=== PATIENT | female | born 1960 ===

== ENCOUNTER 2016-11-05 10:09 | Inpatient (IN) ==
[2016-11-05] MEDS ORDERED: ONDANSETRON 4 MG/2 ML VIAL IV PRN (11:32)
[2016-11-05 13:19] LABS: Basophils # 0.1 10*3/uL (0.0-0.2); Eosinophils # 0.3 10*3/uL (0.0-0.87); Eosinophils % 3.8 % (0.00-10.9); Hematocrit 41.5 VOL% (35.7-47.0); Hemoglobin 13.9 GM/DL (12.0-16.0); Immature Granulocytes % 0.7 %; Immature Granulocytes Absolute 0.06 #; Lymphocytes # 2.4 10*3/uL (1.4-4.0); Lymphocytes % 27.5 % (21.3-54.2); Mean Corpuscular HGB Conc 33.5 GM/DL (32-36); Mean Corpuscular Hemoglobin 30 PG (27-34); Mean Corpuscular Volume 89.1 FL (87-102); Mean Platelet Volume 10.8 FL (9.6-12.0); Monocytes # 0.9 10*3/uL (0.11-0.8); Monocytes % 9.7 % (1.7-12.7); Neutrophils % 57.3 % (38.7-73.9); Platelet Count 299 T/CUMM (130-400); Red Blood Count 4.66 MC/CUMM (3.8-5.5); Red Cell Distribution Width 13.1 % (9.3-17.3); White Blood Count 8.7 T/CUMM (4-12)
--- NOTE | 2016-11-05 13:52 | XRay Report ---
Portable chest Date: 11/05/2016 Clinical history: Shortness of breath Comparison: None Technique: Portable AP sitting chest Findings: The heart is minimally enlarged of prior median sternotomy. Probable chronic scarring with atelectasis the left lung base. Unremarkable mediastinum with degenerative changes. Impression: Status post median sternotomy with chronic scarring. Subsegmental atelectasis at the left lung base. PROCEDURE INTERPRETED AT [facility] ([facility]) DEPARTMENT OF RADIOLOGY Final Report Signed by: Dr. Jenna Schmitt
[2016-11-05 14:08] LABS: Alanine Aminotransferase 35 U/L (13-56); Albumin 4.2 G/DL (3.4-5.0); Alkaline Phosphatase 113 U/L (45-117); Aspartate Amino Transferase 26 U/L (0-37); Bilirubin,Total < 0.39 MG/DL (0.2-1.0); Blood Urea Nitrogen 23 MG/DL (7-18); Calcium 9.8 MG/DL (8.5-10.1); Cholesterol 253 MG/DL (50-200); Free T4 (Free Thyroxine) 0.83 NG/DL (0.76-1.46); Glucose 143 MG/DL (74-106); HDL Cholesterol 64 MG/DL (40-60); Magnesium 2.5 MG/DL (1.8-2.4); Osmolality,Calculated 284.4 MOS/KG (273-304); Potassium 4.1 MMOL/L (3.5-5.1); Risk Ratio 3.95; Sodium 140 MMOL/L (136-145); Total Protein 7.8 G/DL (6.4-8.3); Triglycerides 542 MG/DL (2-150); VLDL CHOLESTEROL 108.4 MG/DL
--- NOTE | 2016-11-05 14:21 | EKG Report ---
Stationary ECG Study [facility] Test Date: 11/05/2016 2:20:45 PM Pat Name: JHONNY RICO Department: Room: 118 Gender: F Rn International: MALLORY : 1960 Requested by: Rodger Carey Order Number: [id number] Reading MD: CYNTHIA MENDEZ Intervals [place] Rate: 82 P: 51 UT: 143 QRS: -3 QRSD: 103 T: 43 QT: 415 QTc: 454 Interpretive Statements SINUS RHYTHM Electronically Signed On 11-09-16 11:58:26 CDT by CYNTHIA MENDEZ [email or web address]
[2016-11-05 14:29] LABS: Apearance,Urine CLEAR (Clear); Bilirubin,Urine Negative (Negative); Blood, Urine Negative (Negative); Glucose,Urine (UA) Negative (Negative); Ketones,Urine Negative (Negative); Mucus,Urine Occasional /LPF (Occasional); Nitrite,Urine Negative (Negative); Protein,Urine Negative; RBC,Urine 1 /HPF (0-4); Squamous Epithelial Cell,Urine Occasional /HPF (0-10); Urine Color Yellow (Yellow); Urine Specific Gravity 1.011 (1.001-1.035); Urine Urobilinogen < 2.0 EU/DL (0.2-1.0); WBC,Urine 2 /HPF (0-6)
--- NOTE | 2016-11-05 14:36 | Cardiology Consult Note ---
History of Present Illness - Data of Consult Patient: new to practice Consult date: 11/05/16 Requesting Physician: Isela Swan - Consult Narrative Reason for consult: chest pain History of present illness: Ms. Edwards is a 56 year old female who has known corneal disease and bypass surgery previously. She is referred for the [facility] i.e. Dr. Sebastian for evaluation of chest pain. The patient arrived on IV heparin and nitroglycerin. This patient states this past Wednesday that she began having periods of lightheadedness and dizziness but no syncope or near syncope. This was not limiting. Wednesday she had a single episode of a fleeting left-sided chest pain that was sharp in nature lasting less than a minute. This was not accompanied by shortness of breath nausea diaphoresis or other symptomatology. It was nonradiating. After this she noted 3 or 4 times a day that she would have fleeting pressure pains lasting just seconds. In fact during our interview and exam she had one or 2 of these episodes especially when I place my stethoscope over the left anterior chest. She was referred here to [facility] in transfer to the hospitalist service for chest pain. She was started on IV nitroglycerin and heparin prior to transfer. The patient was not having any chest pain at this time. Review of her outside records from [facility] I see no cardiac enzymes. Her proBNP is unremarkable. Her to restrict her CBC is unremarkable. Her ECG is unremarkable from there and probably normal. Some records that are available from a [facility] reveals that she had had a renal cell carcinoma grade 1 that was treated surgically and did well. Also dated December 2013 is a cardiac perfusion study that revealed ejection fraction 47% in some areas that appeared ashen B scar but was felt to possibly be secondary to ischemia. A cardiac catheterization carried out. After this cardiac perfusion study she had cardiac catheterization without LV gram. Based on this the left main coronary artery gave rise to the LAD and circumflex arteries with the left requiring being patent without stenosis or disease. The LAD was patent with moderate diffuse disease proximally. Circumflex artery gave rise to small obtuse marginal branches. The RCA was totally occluded in its midportion. Grafts included a SANABRIA to LAD that was widely patent supplying the apical LAD. The vein graft to the circumflex marginal branch appeared to be patent and had disease beyond that. There is a small vessel to which he was attached. The vein graft to the distal RCA was patent with distal same percent stenosis. The vein graft to the distal RCA as well as to another marginal branch or diagonal branch was occluded. An echocardiogram carried out December 2013 with ejection fraction 50% without definitive valvular abnormality. Other cardiac chambers were Normal size. At this time the patient generally stable without specific issues or problems. [facility] Medications and Allergies Allergies/Adverse Reactions: Allergies Allergy/AdvReac Type Severity Reaction Status Date / Time sitagliptin [From Januvia] Allergy Intermediate RASH Verified 11/05/16 13:38 acetaminophen [From Vicodin] AdvReac Mild ITCHING Verified 11/05/16 13:38 codeine AdvReac Mild ITCHING Verified 11/05/16 13:38 hydrocodone [From Vicodin] AdvReac Mild ITCHING Verified 11/05/16 13:38 Review of systems: Constitutional: Denies anorexia, chills, fatigue, fever, frequent falls, night sweats, weight gain, weight loss Eyes: Denies visual changes or loss of vision Ears: Denies decreased hearing, vertigo Nose, mouth and throat: Denies dysphagia, epistaxis, headaches, neck pain, tongue swelling, Neck: Denies thyromegaly or masses. No stiffness. Cardiovascular: as per HPI Respiratory: Denies cough, dyspnea, hemoptysis, wheezing, snoring. She does have a history of some distant exertion for the last several months. Gastrointestinal: Denies abdominal pain, constipation, dyspepsia, dysphagia, hematemesis, hematochezia, melena, nausea, vomiting Genitourinary: Denies dysuria, hematuria, nocturia Musculoskeletal: Denies arthralgias, joint swelling, muscle weakness, myalgias Neurological: denies abnormal gait, abnormal speech, confusion, convulsions, frequent falls, headaches, memory loss, syncope Psychiatric: Denies anxiety, confusion, depression Endocrine: Denies cold intolerance, fatigue, heat intolerance Hematologic/Lymphatic: Denies easy bleeding, easy bruising Dermatologic: Denies Rash, itching, shingles Medical,Surgical,& Family Hx - Medical History Cardio: History of: CHF (2013), CAD (CABG in 2007), Hypertension, [place] (CABG in 2007), PVD (2012) Endocrine: History of: Diabetes Mellitus (NIDDM) (on metformin and levimer), Dyslipidemia Respiratory: History of: Asthma Renal: History of: Renal (Kidney) Cancer (tumor resection left kidney 2013) Gastrointestinal: History of: GERD Other: History of: Cancer (stage I tumor left kidnes) - Surgical History Cardiac Surgeries: Sugical HX of: Cardiac Catheterization, Cardiac Surgery ( CABG in 2007) Patient Denies: Carotid Endarterectomy (diagnosed with carotid artery 2012) Thoracic Surgeries: Patient denies;: Organ Transplant Neurologic Surgeries: Patient denies: Neurologic Surgery HEENT Surgeries: Patient denies: Carotid Endarterectomy (diagnosed with carotid artery 2012) Reproductive Surgeries: Surgical HX of;: Section (x3), Gynecologic Surgery, Hysterectomy Patient denies;: Genitourinary Surgery Orthopedic Surgeries: Surgical HX of;: Orthopedic Surgery (ACL surgery left knee ) - Family History Family History: Reports;: Family Cancer (both parents (kind unknown)), Family Diabetes (Aunts on both sides), Family Heart Disease (both parents with stents) , Family Hypertension Denies;: Family Anesthesia Reaction, Family Hematology - Social History Smoking Status: Former smoker Frequency of Alcohol Use: None Type of Drug Use: None Physical Examination Other: General appearance: Overweight/obese, no acute distress Head exam: normal inspection, atraumatic Eye exam: Pupils are equal and reactive. EOMI. There is no trauma. Ear exam: Anatomically normal. Normal auditory acuity to conversation. Oral exam: No significant oral lesions. Neck exam: normal inspection no JVD. No carotid bruit. Trachea is in midline. Respiratory exam: clear to auscultation bilaterally posteriorly and anteriorly with good air movement. No rales, rhonchi or wheezes. Cardiovascular exam: regular rate and rhythm, no murmur or gallop or rub. No precordial lift. No bruits over the major arteries. Chest wall/torso: Anatomically normal. No tenderness, deformity. It should be noted on 2 incidences in which my stethoscope touched her left anterior chest she had reproduction of her her fleeting pain. He was not grossly tender though. Peripheral Pulses: 2+ throughout. No gross bruits over any of the major arteries. GI/Abdominal exam: normal bowel sounds, soft and nontender, no abdominal bruits or pulsatile masses. Musculoskeletal/Extremities exam: normal inspection without edema or cyanosis. No deformities or trauma. Neurological exam: alert, oriented X3. There is no gross neurologic deficits. Psychiatric exam: normal affect, normal mood. Cognitive function is grossly intact. Skin exam: normal color, warm. No rashes or other skin lesions. Result/EKG - Labs CBC & BMP: 11/05/16 13:14 11/05/16 13:14 Lab Results: I have reviewed the past 24 hour labs Labs: Laboratory Results - last 24 hr 11/05/16 11/05/16 11/05/16 13:14 13:14 13:14 WBC 8.7 RBC 4.66 Hgb 13.9 Hct 41.5 MCV 89.1 MCH 30 MCHC 33.5 RDW 13.1 Plt Count 299 MPV 10.8 Neut % (Auto) 57.3 Lymph % (Auto) 27.5 [place] % (Auto) 9.7 Eos % (Auto) 3.8 Baso % (Auto) 1.0 H Neut # (Auto) 5.0 Lymph # (Auto) 2.4 [place] # (Auto) 0.9 H Eos # (Auto) 0.3 Baso # (Auto) 0.1 Immature Gran % 0.7 Nucleated RBC % 0.0 Immature Gran # 0.06 Nucleated RBCs # 0.00 Sodium 140 Potassium 4.1 Chloride 101 Carbon Dioxide 27 Anion Gap 16.1 H BUN 23 H Creatinine 1.20 H GFR Calculation 55 BUN/Creatinine Ratio 19.00 Glucose 143 H POC Glucose Calculated Osmolality 284.4 Calcium 9.8 Magnesium 2.5 H Total Bilirubin < 0.39 AST 26 ALT 35 Alkaline Phosphatase 113 B-Natriuretic Peptide 120 H Total Protein 7.8 Albumin 4.2 Globulin 3.6 H Albumin/Globulin Ratio 1.1 Triglycerides 542 H Cholesterol 253 H LDL Cholesterol 126.0 VLDL Cholesterol 108.4 HDL Cholesterol 64 H Heart Disease Risk Ratio 3.95 Free T4 0.83 TSH 3rd Generation 1.850 11/05/16 14:17 WBC RBC Hgb Hct MCV MCH MCHC RDW Plt Count MPV Neut % (Auto) Lymph % (Auto) [place] % (Auto) Eos % (Auto) Baso % (Auto) Neut # (Auto) Lymph # (Auto) [place] # (Auto) Eos # (Auto) Baso # (Auto) Immature Gran % Nucleated RBC % Immature Gran # Nucleated RBCs # Sodium Potassium Chloride Carbon Dioxide Anion Gap BUN Creatinine GFR Calculation BUN/Creatinine Ratio Glucose POC Glucose 144 H Calculated Osmolality Calcium Magnesium Total Bilirubin AST ALT Alkaline Phosphatase B-Natriuretic Peptide Total Protein Albumin Globulin Albumin/Globulin Ratio Triglycerides Cholesterol LDL Cholesterol VLDL Cholesterol HDL Cholesterol Heart Disease Risk Ratio Free T4 TSH 3rd Generation - Impressions Impressions: ECG here is normal sinus rhythm and within normal limits without ischemic changes.
--- NOTE | 2016-11-05 14:45 | Cardiology Consult Note ---
Assessment and Plan (1) Chest pain Status: Acute Assessment and plan: This is atypical for cardiac and his diet that is cardiac. No further evaluation unless his other enzymes are elevated or other issues are found. Current Visit: Yes (2) CAD (coronary artery disease), [place] coronary artery Status: Chronic Assessment and plan: Past surgical bypass surgery with 2 vein grafts) patent 2 vein grafts and SANABRIA graft. Current Visit: Yes (3) CAD (coronary artery disease) of bypass graft Status: Chronic Assessment and plan: 2 vein grafts in 2013 were close. Current Visit: Yes (4) History of coronary artery bypass graft Status: Acute Assessment and plan: This apparently carried out 2007. Had SANABRIA to LAD, SVG to OM, SVG to RCA which were noted to be patent in 2014 catheterization. At that same time SVG to distal RCA and SVG to what may be a diagonal branch were occluded. Current Visit: Yes (5) Dyslipidemia Status: Chronic Assessment and plan: Chronic treatment for this. We will check lipids Current Visit: Yes (6) Diabetes mellitus Status: Chronic Assessment and plan: We will leave this to the primary service. Current Visit: Yes (7) Hypertension Status: Chronic Assessment and plan: This appears to be poorly controlled and we will manage this accordingly with the primary service as well. Current Visit: Yes (8) Obesity Status: Chronic Assessment and plan: Weight loss to be beneficial to the patient. Current Visit: Yes History of Present Illness - Consult Narrative History of present illness: Ms. Edwards is a 56 year old female [facility] Medications and Allergies Home Medications: Home Medications Medication Instructions Recorded Confirmed Type Albuterol Inhaler [Proventil 2 puff INH Q4H PRN 11/05/16 11/05/16 History Inhaler] Aspirin [Aspirin EC] 81 mg PO DAILY 11/05/16 11/05/16 History Atorvastatin [Lipitor] 40 mg PO BEDTIME 11/05/16 11/05/16 History Carvedilol [Coreg] 3.125 mg PO BID 11/05/16 11/05/16 History Cholecalciferol (Vitamin D3) 1,000 unit PO DAILY 11/05/16 11/05/16 History [Vitamin D3] Cilostazol [Pletal] 50 mg PO BID 11/05/16 11/05/16 History Furosemide [Lasix] 40 mg PO DAILY 11/05/16 11/05/16 History Gabapentin 600 mg PO TID 11/05/16 11/05/16 History Insulin Detemir [Levemir FlexPen] 35 unit SUBCUT DAILY 11/05/16 11/05/16 History Losartan Potassium [Cozaar] 100 mg PO DAILY 11/05/16 11/05/16 History Pantoprazole Tab [Protonix Tab] 40 mg PO BID 11/05/16 11/05/16 History Potassium Chloride [Klor-Con] 20 meq PO DAILY 11/05/16 11/05/16 History Propylene Glycol [Systane Balance] 1 drop BOTH EYES Q4-6H PRN 11/05/16 11/05/16 History metFORMIN [Glucophage] 500 mg PO BID W/MEALS 11/05/16 11/05/16 History Allergies/Adverse Reactions: Allergies Allergy/AdvReac Type Severity Reaction Status Date / Time sitagliptin [From Januvia] Allergy Intermediate RASH Verified 11/05/16 13:38 acetaminophen [From Vicodin] AdvReac Mild ITCHING Verified 11/05/16 13:38 codeine AdvReac Mild ITCHING Verified 11/05/16 13:38 hydrocodone [From Vicodin] AdvReac Mild ITCHING Verified 11/05/16 13:38 Medical,Surgical,& Family Hx - Medical History Cardio: History of: CHF (2013), CAD (CABG in 2007), Hypertension, [place] (CABG in 2007), PVD (2012) Endocrine: History of: Diabetes Mellitus (NIDDM) (on metformin and levimer), Dyslipidemia Respiratory: History of: Asthma Renal: History of: Renal (Kidney) Cancer (tumor resection left kidney 2013) Gastrointestinal: History of: GERD Other: History of: Cancer (stage I tumor left ) - Surgical History Cardiac Surgeries: Sugical HX of: Cardiac Catheterization, Cardiac Surgery ( CABG in 2007) Patient Denies: Carotid Endarterectomy (diagnosed with carotid artery 2012) Thoracic Surgeries: Patient denies;: Organ Transplant Neurologic Surgeries: Patient denies: Neurologic Surgery HEENT Surgeries: Patient denies: Carotid Endarterectomy (diagnosed with carotid artery 2012) Reproductive Surgeries: Surgical HX of;: Section (x3), Gynecologic Surgery, Hysterectomy Patient denies;: Genitourinary Surgery Orthopedic Surgeries: Surgical HX of;: Orthopedic Surgery (ACL surgery left knee ) - Family History Family History: Reports;: Family Cancer (both parents (kind unknown)), Family Diabetes (Aunts on both sides), Family Heart Disease (both parents with stents) , Family Hypertension Denies;: Family Anesthesia Reaction, Family Hematology - Social History Smoking Status: Former smoker Frequency of Alcohol Use: None Type of Drug Use: None Result/EKG - Labs CBC & BMP: 11/05/16 13:14 11/05/16 13:14 Labs: Laboratory Results - last 24 hr 11/05/16 11/05/16 11/05/16 13:14 13:14 13:14 WBC 8.7 RBC 4.66 Hgb 13.9 Hct 41.5 MCV 89.1 MCH 30 MCHC 33.5 RDW 13.1 Plt Count 299 MPV 10.8 Neut % (Auto) 57.3 Lymph % (Auto) 27.5 [place] % (Auto) 9.7 Eos % (Auto) 3.8 Baso % (Auto) 1.0 H Neut # (Auto) 5.0 Lymph # (Auto) 2.4 [place] # (Auto) 0.9 H Eos # (Auto) 0.3 Baso # (Auto) 0.1 Immature Gran % 0.7 Nucleated RBC % 0.0 Immature Gran # 0.06 Nucleated RBCs # 0.00 Sodium 140 Potassium 4.1 Chloride 101 Carbon Dioxide 27 Anion Gap 16.1 H BUN 23 H Creatinine 1.20 H GFR Calculation 55 BUN/Creatinine Ratio 19.00 Glucose 143 H POC Glucose Calculated Osmolality 284.4 Calcium 9.8 Magnesium 2.5 H Total Bilirubin < 0.39 AST 26 ALT 35 Alkaline Phosphatase 113 B-Natriuretic Peptide 120 H Total Protein 7.8 Albumin 4.2 Globulin 3.6 H Albumin/Globulin Ratio 1.1 Triglycerides 542 H Cholesterol 253 H LDL Cholesterol 126.0 VLDL Cholesterol 108.4 HDL Cholesterol 64 H Heart Disease Risk Ratio 3.95 Free T4 0.83 TSH 3rd Generation 1.850 Urine Color Urine Appearance Urine pH Ur Specific [place] Urine Protein Urine Glucose (UA) Urine Ketones Urine Blood Urine Nitrate Urine Bilirubin Urine Urobilinogen Urine Leukocytes Urine RBC Urine WBC Ur Squamous Epith Cells Urine Mucus Ur Culture Indicated? 11/05/16 11/05/16 13:40 14:17 WBC RBC Hgb Hct MCV MCH MCHC RDW Plt Count MPV Neut % (Auto) Lymph % (Auto) [place] % (Auto) Eos % (Auto) Baso % (Auto) Neut # (Auto) Lymph # (Auto) [place] # (Auto) Eos # (Auto) Baso # (Auto) Immature Gran % Nucleated RBC % Immature Gran # Nucleated RBCs # Sodium Potassium Chloride Carbon Dioxide Anion Gap BUN Creatinine GFR Calculation BUN/Creatinine Ratio Glucose POC Glucose 144 H Calculated Osmolality Calcium Magnesium Total Bilirubin AST ALT Alkaline Phosphatase B-Natriuretic Peptide Total Protein Albumin Globulin Albumin/Globulin Ratio Triglycerides Cholesterol LDL Cholesterol VLDL Cholesterol HDL Cholesterol Heart Disease Risk Ratio Free T4 TSH 3rd Generation Urine Color Yellow Urine Appearance Clear Urine pH 6.0 Ur Specific [place] 1.011 Urine Protein Negative Urine Glucose (UA) Negative Urine Ketones Negative Urine Blood Negative Urine Nitrate Negative Urine Bilirubin Negative Urine Urobilinogen < 2.0 H Urine Leukocytes Negative Urine RBC 1 Urine WBC 2 Ur Squamous Epith Cells Occasional Urine Mucus Occasional Ur Culture Indicated? Not indicated
[2016-11-05] MEDS ORDERED: POLYVINYL ALCOHOL 1.4% OPH SOLN 15 ML BOTTLE BOTH EYES PRN (14:47)
[2016-11-05] MEDS ORDERED: cloNIDine 0.1 MG TABLET PO PRN (14:49)
[2016-11-05 14:57] LABS: Troponin I Only < 0.015 NG/ML (0.00-0.045)
[2016-11-05] MEDS ORDERED: ALBUTEROL 2.5 MG/3 ML NEB RESP TX PRN (15:00)
--- NOTE | 2016-11-05 15:57 | Hospitalist History & Physical ---
Assessment and Plan (1) Chest pain Status: Acute Assessment and plan: We will admit. Obtain echo, lipid panel, HGA1C, thyroid panel, and serial cardiac enzymes. Will consult Cardiology to assist. Heparin and Nitro discontinued per Cardiology. We will resume her home medications. Current Visit: Yes (2) Diabetes mellitus Status: Chronic Assessment and plan: Obtain HGA1C now. We will manage and adjust accordingly. Current Visit: Yes (3) Dyslipidemia Status: Chronic Assessment and plan: Will manage and treat as indicated; obtain lipid panel now. Current Visit: Yes (4) Hypertension Status: Chronic Assessment and plan: Will will treat and adjust as indicated. She is hypertensive now; her SBP is above 170 and diastolic is above 110. Will start Hydralazine PRN. Current Visit: Yes History of Present Illness Chief complaint: Unstable angina History of present illness: This is a 56 year old female that presented to [facility] as a lateral transfer from the [facility] for evaluation of unstable angina. She has a rather complex medical history of hypertension, coronary artery disease, renal cell carcinoma, congestive heart failure, peripheral vascular disease, myocardial infarction, asthma, diabetes mellitus, and GERD. She has a surgical history of left knee ACL surgery, coronary artery bypass graft in 2007, and left kidney tumor resection. She reported an onset of symptoms on Wednesday of last week. She described them as "lightheadedness"; however she denies syncope. The patient reports these symptoms as intermittent. On yesterday,she started experiencing left sided chest pain. She denies nausea, diaphoresis, syncope, or jaw pain during these episodes. She became alarmed and she went to the [facility] for evaluation. She was evaluated there by Dr. Sebastian. She was placed on a heparin and nitroglycerin infusion. We were contacted by Dr. Sebastian for assistance in the management of this patient. She was then transferred to [facility] for continuation of care. She will be admitted under the hospitalist services for continuation of care. We will consult Cardiology to assist in her management during the clinical encounter. She has been seen by Dr. Lane and her infusions have been discontinued. Home Medications Medication Instructions Recorded Confirmed Type Albuterol Inhaler [Proventil 2 puff INH Q4H PRN 11/05/16 11/05/16 History Inhaler] Aspirin [Aspirin EC] 81 mg PO DAILY 11/05/16 11/05/16 History Atorvastatin [Lipitor] 40 mg PO BEDTIME 11/05/16 11/05/16 History Carvedilol [Coreg] 3.125 mg PO BID 11/05/16 11/05/16 History Cholecalciferol (Vitamin D3) 1,000 unit PO DAILY 11/05/16 11/05/16 History [Vitamin D3] Cilostazol [Pletal] 50 mg PO BID 11/05/16 11/05/16 History Furosemide [Lasix] 40 mg PO DAILY 11/05/16 11/05/16 History Gabapentin 600 mg PO TID 11/05/16 11/05/16 History Insulin Detemir [Levemir FlexPen] 35 unit SUBCUT DAILY 11/05/16 11/05/16 History Losartan Potassium [Cozaar] 100 mg PO DAILY 11/05/16 11/05/16 History Pantoprazole Tab [Protonix Tab] 40 mg PO BID 11/05/16 11/05/16 History Potassium Chloride [Klor-Con] 20 meq PO DAILY 11/05/16 11/05/16 History Propylene Glycol [Systane Balance] 1 drop BOTH EYES Q4-6H PRN 11/05/16 11/05/16 History metFORMIN [Glucophage] 500 mg PO BID W/MEALS 11/05/16 11/05/16 History Allergies Allergy/AdvReac Type Severity Reaction Status Date / Time sitagliptin [From Januvia] Allergy Intermediate RASH Verified 11/05/16 13:38 acetaminophen [From Vicodin] AdvReac Mild ITCHING Verified 11/05/16 13:38 codeine AdvReac Mild ITCHING Verified 11/05/16 13:38 hydrocodone [From Vicodin] AdvReac Mild ITCHING Verified 11/05/16 13:38 Medical,Surgical,& Family Hx - Medical History Cardio: History of: CHF (2013), CAD (CABG in 2007), Hypertension, [place] (CABG in 2007), PVD (2012) Endocrine: History of: Diabetes Mellitus (NIDDM) (on metformin and levimer), Dyslipidemia Respiratory: History of: Asthma Renal: History of: Renal (Kidney) Cancer (tumor resection left kidney 2013) Gastrointestinal: History of: GERD Other: History of: Cancer (stage I tumor left kid) - Surgical History Cardiac Surgeries: Sugical HX of: Cardiac Catheterization, Cardiac Surgery ( CABG in 2007) Patient Denies: Carotid Endarterectomy (diagnosed with carotid artery 2012) Thoracic Surgeries: Patient denies;: Organ Transplant Neurologic Surgeries: Patient denies: Neurologic Surgery HEENT Surgeries: Patient denies: Carotid Endarterectomy (diagnosed with carotid artery 2012) Reproductive Surgeries: Surgical HX of;: Section (x3), Gynecologic Surgery, Hysterectomy Patient denies;: Genitourinary Surgery Orthopedic Surgeries: Surgical HX of;: Orthopedic Surgery (ACL surgery left knee ) - Family History Family History: Reports;: Family Cancer (both parents (kind unknown)), Family Diabetes (Aunts on both sides), Family Heart Disease (both parents with stents) , Family Hypertension Denies;: Family Anesthesia Reaction, Family Hematology - Social History Smoking Status: Former smoker Have you smoked in the last 12 months: No Frequency of Alcohol Use: None Type of Drug Use: None Marital Status: Single Lives With:: Alone Functional capacity: independent ambulation 12 point system: reviewed and no additional remarkable complaints except as stated Results - Labs CBC & BMP: 11/05/16 13:14 11/05/16 13:14
[2016-11-05] MEDS: GABAPENTIN 600 MG TABLET PO SCH ×2 (16:02→22:15)
[2016-11-05] MEDS ORDERED: LOSARTAN 50 MG TABLET PO ONE (16:14)
[2016-11-05] MEDS ORDERED: metFORMIN 500 MG TABLET PO SCH (17:00)
[2016-11-05] MEDS: metFORMIN 500 MG TABLET PO SCH (18:46)
[2016-11-05] MEDS ORDERED: ATORVASTATIN 40 MG TABLET PO SCH (21:00)
[2016-11-05] MEDS ORDERED: CARVEDILOL 3.125 MG TABLET PO SCH (21:00)
[2016-11-05] MEDS: CILOSTAZOL 50 MG TABLET PO SCH (22:15)
[2016-11-05] MEDS: PANTOPRAZOLE 40 MG TABLET PO SCH (22:16)
[2016-11-05] MEDS: CARVEDILOL 6.25 MG TABLET PO SCH (22:16)
[2016-11-06 05:04] LABS: Basophils # 0.1 10*3/uL (0.0-0.2); Basophils % 0.8 % (0.0-0.8); Eosinophils # 0.3 10*3/uL (0.0-0.87); Eosinophils % 3.4 % (0.00-10.9); Hematocrit 39.3 VOL% (35.7-47.0); Hemoglobin 12.8 GM/DL (12.0-16.0); Immature Granulocytes % 0.4 %; Immature Granulocytes Absolute 0.03 #; Lymphocytes # 2.2 10*3/uL (1.4-4.0); Lymphocytes % 30.9 % (21.3-54.2); Mean Corpuscular HGB Conc 32.6 GM/DL (32-36); Mean Corpuscular Hemoglobin 29 PG (27-34); Mean Corpuscular Volume 89.9 FL (87-102); Mean Platelet Volume 10.9 FL (9.6-12.0); Monocytes # 0.7 10*3/uL (0.11-0.8); Monocytes % 9.6 % (1.7-12.7); Neutrophils % 54.9 % (38.7-73.9); Platelet Count 271 T/CUMM (130-400); Red Blood Count 4.37 MC/CUMM (3.8-5.5); White Blood Count 7.3 T/CUMM (4-12)
[2016-11-06 05:38] LABS: Calcium 9.6 MG/DL (8.5-10.1); Magnesium 2.5 MG/DL (1.8-2.4); Osmolality,Calculated 285.7 MOS/KG (273-304); Potassium 4.9 MMOL/L (3.5-5.1)
[2016-11-06 05:45] LABS: Alanine Aminotransferase 34 U/L (13-56); Albumin 3.9 G/DL (3.4-5.0); Alkaline Phosphatase 99 U/L (45-117); Aspartate Amino Transferase 21 U/L (0-37); Blood Urea Nitrogen 29 MG/DL (7-18); Calcium 9.6 MG/DL (8.5-10.1); Glucose 178 MG/DL (74-106); Osmolality,Calculated 286.5 MOS/KG (273-304); Sodium 139 MMOL/L (136-145); Total Protein 6.9 G/DL (6.4-8.3); Troponin I Only < 0.015 NG/ML (0.00-0.045)
[2016-11-06 06:01] LABS: Risk Ratio 3.85
--- NOTE | 2016-11-06 07:50 | XRay Report ---
XR chest 1V portable Indication: Shortness of breath Comparison: 05 November 2016 Findings: The heart and mediastinum are stable in size and configuration with cardiac surgery changes. The pulmonary vascularity is normal in caliber. Lung volumes are increased with prominent bronchial markings. No lung infiltrates, effusions, pneumothorax or other abnormality is demonstrated. Impression: Chronic lung and cardiac surgery changes. No acute process or significant change. PROCEDURE INTERPRETED AT [facility] DEPARTMENT OF RADIOLOGY Final Report Signed by: Dr. Fidel Miller
[2016-11-06] MEDS: CILOSTAZOL 50 MG TABLET PO SCH (08:36)
[2016-11-06] MEDS: CARVEDILOL 6.25 MG TABLET PO SCH (08:36)
[2016-11-06] MEDS: metFORMIN 500 MG TABLET PO SCH (08:38)
[2016-11-06] MEDS: GABAPENTIN 600 MG TABLET PO SCH (08:38)
[2016-11-06] MEDS: PANTOPRAZOLE 40 MG TABLET PO SCH (08:40)
[2016-11-06] MEDS ORDERED: POTASSIUM CHLORIDE 20 MEQ PACK PO SCH (09:00)
[2016-11-06] MEDS ORDERED: INSULIN GLARGINE 100 UNIT/ML SUBCUT SCH (09:00)
[2016-11-06] MEDS ORDERED: ASPIRIN EC 81 MG TABLET PO SCH (09:00)
[2016-11-06] MEDS ORDERED: LOSARTAN 50 MG TABLET PO SCH ×2 (09:00→21:00)
[2016-11-06] MEDS ORDERED: PANTOPRAZOLE 40 MG TABLET PO SCH (09:00)
[2016-11-06] MEDS ORDERED: FUROSEMIDE 40 MG TABLET PO SCH (09:00)
[2016-11-06] MEDS ORDERED: CHOLECALCIFEROL 1,000 UNIT TABLET PO SCH (09:00)
--- NOTE | 2016-11-06 09:51 | Cardiology Progress Note ---
Assessment and Plan (1) Chest pain Status: Acute Assessment and plan: This is noncardiac pain he needs no further evaluation this time. She can follow-up with Dr. Ocampo at the [facility] for her continued follow-up that she has been doing. Current Visit: Yes (2) CAD (coronary artery disease), [place] coronary artery Status: Chronic Assessment and plan: This can be followed up with Dr. Ocampo is been following her at the [facility]. This is clinically stable. Current Visit: Yes (3) CAD (coronary artery disease) of bypass graft Status: Chronic Assessment and plan: 2 vein grafts in 2014 were close. Other grafts were open. This was clinically stable. Current Visit: Yes (4) History of coronary artery bypass graft Status: Acute Assessment and plan: This apparently carried out 2007. Had [place] to LAD, SVG to OM, SVG to RCA which were noted to be patent in 2014 catheterization. At that same time SVG to distal RCA and SVG to what may be a diagonal branch were occluded. Current Visit: Yes (5) Dyslipidemia Status: Chronic Assessment and plan: Chronic treatment for this. Lipids are elevated is a question that she has been compliant with her treatment. She needs to follow this up as an outpatient and stay compliant with her treatment. Current Visit: Yes (6) Diabetes mellitus Status: Chronic Assessment and plan: We will leave this to the primary service. Current Visit: Yes (7) Hypertension Status: Chronic Assessment and plan: This is much better controlled at this time present medical regimen. She's had some dizziness but don't think is her blood pressure. Her blood pressure went high and she had dizziness and during the night with a low still had some dizziness and this morning she has episodes of with her pressures normal. I would continue present medical regimen. She has a blood pressure cuff at home but needs batteries Reji to do a blood pressure general at home and follow- up with her PCP. Current Visit: Yes (8) Obesity Status: Chronic Assessment and plan: Weight loss to be beneficial to the patient. Current Visit: Yes Cardiology - PN: Subj Interval history: Patient from a cardiac standpoint remained stable. She has occasional fleeting type chest pain lasting a second or less. Certainly is not anginal in quality. She had any shortness of breath. She's continued had his feeling of dizziness. She's not having any heart symptomatology. Denies shortness of breath. Her rhythm is remained stable. Her troponins are nondetectable. ECG is normal. The patient had carotid Dopplers carried out 11/05/2016 as per the report she greater than 50% stenosis in the right side but based on velocities is unlikely that this is hemodynamically significant causing her symptoms. Left side with no significant stenosis. Vertebral arteries had antegrade flow. The patient is followed by Dr. Ocampo at the [facility]. I think this patient could be discharged when primary service is ready. At this time she needs no further cardiac evaluation. We will sign off the patient but please let us know if she has any issues that we can assist you with. Exam (Progress Note) - Constitutional Vitals: Period Temp Pulse Resp BP Sys/Newsome Pulse Ox Last 24 Hr 97.6 F-97.8 F 75-115 12-22 83-155/43-125 91-98 Exam: General appearance: Overweight/obese, no acute distress Head exam: normal inspection, atraumatic Eye exam: Pupils are equal and reactive. EOMI. There is no trauma. Ear exam: Anatomically normal. Normal auditory acuity to conversation. Oral exam: No significant oral lesions. Neck exam: normal inspection no JVD. No carotid bruit. Trachea is in midline. Respiratory exam: clear to auscultation bilaterally posteriorly and anteriorly with good air movement. No rales, rhonchi or wheezes. Cardiovascular exam: regular rate and rhythm, no murmur or gallop or rub. No precordial lift. No bruits over the major arteries. Chest wall/torso: Anatomically normal. No tenderness, deformity. It should be noted on 2 incidences in which my stethoscope touched her left anterior chest she had reproduction of her her fleeting pain. He was not grossly tender though. Peripheral Pulses: 2+ throughout. No gross bruits over any of the major arteries. GI/Abdominal exam: normal bowel sounds, soft and nontender, no abdominal bruits or pulsatile masses. Musculoskeletal/Extremities exam: normal inspection without edema or cyanosis. No deformities or trauma. Neurological exam: alert, oriented X3. There is no gross neurologic deficits. Psychiatric exam: normal affect, normal mood. Cognitive function is grossly intact. Skin exam: normal color, warm. No rashes or other skin lesions. Result/EKG - Labs CBC & BMP: 11/06/16 04:38 04/21/17 04:38 Lab Results: I have reviewed the past 24 hour labs Labs: Laboratory Results - last 24 hr 11/05/16 11/05/16 11/05/16 13:14 13:14 13:14 WBC 8.7 RBC 4.66 Hgb 13.9 Hct 41.5 MCV 89.1 MCH 30 MCHC 33.5 RDW 13.1 Plt Count 299 MPV 10.8 Neut % (Auto) 57.3 Lymph % (Auto) 27.5 [place] % (Auto) 9.7 Eos % (Auto) 3.8 Baso % (Auto) 1.0 H Neut # (Auto) 5.0 Lymph # (Auto) 2.4 [place] # (Auto) 0.9 H Eos # (Auto) 0.3 Baso # (Auto) 0.1 Immature Gran % 0.7 Nucleated RBC % 0.0 Immature Gran # 0.06 Nucleated RBCs # 0.00 Sodium 140 Potassium 4.1 Chloride 101 Carbon Dioxide 27 Anion Gap 16.1 H BUN 23 H Creatinine 1.20 H GFR Calculation 55 BUN/Creatinine Ratio 19.00 Glucose 143 H POC Glucose Calculated Osmolality 284.4 Calcium 9.8 Magnesium 2.5 H Total Bilirubin < 0.39 AST 26 ALT 35 Alkaline Phosphatase 113 Total Creatine Kinase CK-MB (CK-2) Troponin I B-Natriuretic Peptide 120 H Total Protein 7.8 Albumin 4.2 Globulin 3.6 H Albumin/Globulin Ratio 1.1 Triglycerides 542 H Cholesterol 253 H LDL Cholesterol 126.0 VLDL Cholesterol 108.4 HDL Cholesterol 64 H Heart Disease Risk Ratio 3.95 Free T4 0.83 TSH 3rd Generation 1.850 Urine Color Urine Appearance Urine pH Ur Specific [place] Urine Protein Urine Glucose (UA) Urine Ketones Urine Blood Urine Nitrate Urine Bilirubin Urine Urobilinogen Urine Leukocytes Urine RBC Urine WBC Ur Squamous Epith Cells Urine Mucus Ur Culture Indicated? 11/05/16 11/05/16 11/05/16 13:14 13:40 14:17 WBC RBC Hgb Hct MCV MCH MCHC RDW Plt Count MPV Neut % (Auto) Lymph % (Auto) [place] % (Auto) Eos % (Auto) Baso % (Auto) Neut # (Auto) Lymph # (Auto) [place] # (Auto) Eos # (Auto) Baso # (Auto) Immature Gran % Nucleated RBC % Immature Gran # Nucleated RBCs # Sodium Potassium Chloride Carbon Dioxide Anion Gap BUN Creatinine GFR Calculation BUN/Creatinine Ratio Glucose POC Glucose 144 H Calculated Osmolality Calcium Magnesium Total Bilirubin AST ALT Alkaline Phosphatase Total Creatine Kinase 107 CK-MB (CK-2) < 1.0 Troponin I < 0.015 B-Natriuretic Peptide Total Protein Albumin Globulin Albumin/Globulin Ratio Triglycerides Cholesterol LDL Cholesterol VLDL Cholesterol HDL Cholesterol Heart Disease Risk Ratio Free T4 TSH 3rd Generation Urine Color Yellow Urine Appearance Clear Urine pH 6.0 Ur Specific [place] 1.011 Urine Protein Negative Urine Glucose (UA) Negative Urine Ketones Negative Urine Blood Negative Urine Nitrate Negative Urine Bilirubin Negative Urine Urobilinogen < 2.0 H Urine Leukocytes Negative Urine RBC 1 Urine WBC 2 Ur Squamous Epith Cells Occasional Urine Mucus Occasional Ur Culture Indicated? Not indicated 11/06/16 11/06/16 11/06/16 04:38 04:38 04:38 WBC 7.3 RBC 4.37 Hgb 12.8 Hct 39.3 MCV 89.9 MCH 29 MCHC 32.6 RDW 13.0 Plt Count 271 MPV 10.9 Neut % (Auto) 54.9 Lymph % (Auto) 30.9 [place] % (Auto) 9.6 Eos % (Auto) 3.4 Baso % (Auto) 0.8 Neut # (Auto) 4.0 Lymph # (Auto) 2.2 [place] # (Auto) 0.7 Eos # (Auto) 0.3 Baso # (Auto) 0.1 Immature Gran % 0.4 Nucleated RBC % 0.0 Immature Gran # 0.03 Nucleated RBCs # 0.00 Sodium 138 Potassium 4.9 Chloride 102 Carbon Dioxide 28 Anion Gap 12.9 BUN 29 H Creatinine 1.60 H GFR Calculation 39 BUN/Creatinine Ratio 18.00 Glucose 183 H POC Glucose Calculated Osmolality 285.7 Calcium 9.6 Magnesium 2.5 H Total Bilirubin AST ALT Alkaline Phosphatase Total Creatine Kinase CK-MB (CK-2) Troponin I B-Natriuretic Peptide Total Protein Albumin Globulin Albumin/Globulin Ratio Triglycerides 435 H Cholesterol 235 H LDL Cholesterol 123.0 VLDL Cholesterol 87.0 HDL Cholesterol 61 H Heart Disease Risk Ratio 3.85 Free T4 TSH 3rd Generation Urine Color Urine Appearance Urine pH Ur Specific [place] Urine Protein Urine Glucose (UA) Urine Ketones Urine Blood Urine Nitrate Urine Bilirubin Urine Urobilinogen Urine Leukocytes Urine RBC Urine WBC Ur Squamous Epith Cells Urine Mucus Ur Culture Indicated? 11/06/16 04:38 WBC RBC Hgb Hct MCV MCH MCHC RDW Plt Count MPV Neut % (Auto) Lymph % (Auto) [place] % (Auto) Eos % (Auto) Baso % (Auto) Neut # (Auto) Lymph # (Auto) [place] # (Auto) Eos # (Auto) Baso # (Auto) Immature Gran % Nucleated RBC % Immature Gran # Nucleated RBCs # Sodium 139 Potassium 5.0 Chloride 101 Carbon Dioxide 28 Anion Gap 15.0 BUN 29 H Creatinine 1.60 H GFR Calculation 39 BUN/Creatinine Ratio 18.00 Glucose 178 H POC Glucose Calculated Osmolality 286.5 Calcium 9.6 Magnesium Total Bilirubin 1.10 H AST 21 ALT 34 Alkaline Phosphatase 99 Total Creatine Kinase 94 CK-MB (CK-2) < 1.0 Troponin I < 0.015 B-Natriuretic Peptide Total Protein 6.9 Albumin 3.9 Globulin 3.0 Albumin/Globulin Ratio 1.3 Triglycerides Cholesterol LDL Cholesterol VLDL Cholesterol HDL Cholesterol Heart Disease Risk Ratio Free T4 TSH 3rd Generation Urine Color Urine Appearance Urine pH Ur Specific [place] Urine Protein Urine Glucose (UA) Urine Ketones Urine Blood Urine Nitrate Urine Bilirubin Urine Urobilinogen Urine Leukocytes Urine RBC Urine WBC Ur Squamous Epith Cells Urine Mucus Ur Culture Indicated? - Impressions Impressions: Telemetry with normal sinus rhythm.
[2016-11-06] MEDS ORDERED: POTASSIUM CHLORIDE 20 MEQ TABLET PO SCH (10:00)
--- NOTE | 2016-11-06 11:16 | Ultrasound Report ---
Exam: Carotid ultrasound Date: 11/06/2016 Comparison: None Technique: Duplex scans of the carotid and vertebral arteries using B-mode/Schwartz scale imaging and Doppler spectral analysis and color flow. Reason: Dizziness Findings: The right ICA measures 4.8 mm in diameter and the left ICA measures 4.2 mm in diameter. Color-flow documented in the visualized arteries. The peak systolic velocities are as follows: Right CCA: 67.7 cm/s Right ICA: 164.2 cm/s Right ECA: 114.3 cm/s Left CCA: 68.8 cm/s Left ICA: 105.7 cm/s Left ECA: 151.1 cm/s The peak systolic ICA/CCA velocity ratios are as follows: 2.4 on the right and 1.5 on the left. Antegrade flow is present in both vertebral arteries. Impression:[50-69% stenosis in right ICA with heterogeneous plaque formation. Less than 50% stenosis in left ICA. Antegrade flow both vertebral arteries.] The Society of Radiologists in Ultrasound consensus conference criteria was used. The Ultrasound images were captured and stored. PROCEDURE INTERPRETED AT [facility] DEPARTMENT OF RADIOLOGY Final Report Signed by: Dr. Jenna Schmitt
--- NOTE | 2016-11-06 12:21 | Discharge Summary ---
Hospital Course - Hospital Course Hospital Course: Mrs. Edwards was transferred from [facility] to [facility] for evaluation of chest pain. EKG and troponins are serially negative. Patient was evaluated by cardiology and cleared for discharge. Chest pain was felt to be noncardiac. Patient had complaints of postural lightheadedness however carotid ultrasound revealed no evidence of significant hemodynamic stenosis and orthostatic vitals were normal. By discharge patient had met maximum benefit of hospitalization. I spent 38 minutes coordinating this discharge. - Time spent with patient Time with patient DS: Greater than 30 minutes Discharge Plan - Discharge Data Disposition: Disch To Home/Self Care Condition at Discharge: Stable Discharge Diet: advance to your usual diet Activity: resume usual activities as tolerated Hygiene: no restrictions - Discharge Medications Continue metFORMIN [Glucophage] 1,000 mg PO BID W/MEALS Carvedilol [Coreg] 3.125 mg PO BID Gabapentin 600 mg PO TID Pantoprazole Tab [Protonix Tab] 40 mg PO BID Cilostazol [Pletal] 50 mg PO BID Atorvastatin [Lipitor] 40 mg PO BEDTIME Albuterol Inhaler [Proventil Inhaler] 2 puff INH Q4H PRN PRN Reason: Shortness Of Breath/Wheezing Propylene Glycol [Systane Balance] 1 drop BOTH EYES Q4-6H PRN PRN Reason: Dry Eyes Potassium Chloride [Klor-Con] 20 meq PO DAILY Losartan Potassium [Cozaar] 100 mg PO DAILY Insulin Detemir [Levemir FlexPen] 35 unit SUBCUT DAILY Furosemide [Lasix] 40 mg PO DAILY Cholecalciferol (Vitamin D3) [Vitamin D3] 1,000 unit PO DAILY Aspirin [Aspirin EC] 81 mg PO DAILY - Follow Up or Referral - Forms/Instructions Exam - Constitutional Vitals: Period Temp Pulse Resp BP Sys/Newsome Pulse Ox Last 24 Hr 96.8 F-97.8 F 75-115 12-22 83-155/43-125 91-98 General appearance: normal weight, no acute distress - Head Head exam: Present: normal inspection, normocephalic - Eye Eye exam: Present: EOMI Pupils: Present: [place] - ENT ENT exam: Present: normal exam - Neck Neck exam: Present: normal inspection - Respiratory Respiratory exam: Present: clear to auscultation bilaterally. Absent: accessory muscle use, prolonged expiratory phase, wheezes - Cardiovascular Cardiovascular exam: Present: regular rate and rhythm. Absent: bradycardia, irregular rhythm, systolic murmur - GI/Abdominal GI/Abdominal exam: Present: normal bowel sounds. Absent: ascites, hypoactive bowel sounds, tenderness - Extremities Exam Extremities exam: Present: normal inspection Discharge Results Procedures and tests throughout hospitalization: Pending Orders 11/05/16 13:40 Urine Culture Stat Labs on day of discharge: Labs from last 24 hours 11/06/16 11/06/16 11/06/16 04:38 04:38 04:38 WBC 7.3 RBC 4.37 Hgb 12.8 Hct 39.3 MCV 89.9 MCH 29 MCHC 32.6 RDW 13.0 Plt Count 271 MPV 10.9 Neut % (Auto) 54.9 Lymph % (Auto) 30.9 [place] % (Auto) 9.6 Eos % (Auto) 3.4 Baso % (Auto) 0.8 Neut # (Auto) 4.0 Lymph # (Auto) 2.2 [place] # (Auto) 0.7 Eos # (Auto) 0.3 Baso # (Auto) 0.1 Immature Gran % 0.4 Nucleated RBC % 0.0 Immature Gran # 0.03 Nucleated RBCs # 0.00 Sodium 139 138 Potassium 5.0 4.9 Chloride 101 102 Carbon Dioxide 28 28 Anion Gap 15.0 12.9 BUN 29 H 29 H Creatinine 1.60 H 1.60 H GFR Calculation 39 39 BUN/Creatinine Ratio 18.00 18.00 Glucose 178 H 183 H POC Glucose Calculated Osmolality 286.5 285.7 Calcium 9.6 9.6 Magnesium 2.5 H Total Bilirubin 1.10 H AST 21 ALT 34 Alkaline Phosphatase 99 Total Creatine Kinase 94 CK-MB (CK-2) < 1.0 Troponin I < 0.015 B-Natriuretic Peptide Total Protein 6.9 Albumin 3.9 Globulin 3.0 Albumin/Globulin Ratio 1.3 Triglycerides Cholesterol LDL Cholesterol VLDL Cholesterol HDL Cholesterol Heart Disease Risk Ratio Free T4 TSH 3rd Generation Urine Color Urine Appearance Urine pH Ur Specific [place] Urine Protein Urine Glucose (UA) Urine Ketones Urine Blood Urine Nitrate Urine Bilirubin Urine Urobilinogen Urine Leukocytes Urine RBC Urine WBC Ur Squamous Epith Cells Urine Mucus Ur Culture Indicated? 11/06/16 11/05/16 11/05/16 04:38 14:17 13:40 WBC RBC Hgb Hct MCV MCH MCHC RDW Plt Count MPV Neut % (Auto) Lymph % (Auto) [place] % (Auto) Eos % (Auto) Baso % (Auto) Neut # (Auto) Lymph # (Auto) [place] # (Auto) Eos # (Auto) Baso # (Auto) Immature Gran % Nucleated RBC % Immature Gran # Nucleated RBCs # Sodium Potassium Chloride Carbon Dioxide Anion Gap BUN Creatinine GFR Calculation BUN/Creatinine Ratio Glucose POC Glucose 144 H Calculated Osmolality Calcium Magnesium Total Bilirubin AST ALT Alkaline Phosphatase Total Creatine Kinase CK-MB (CK-2) Troponin I B-Natriuretic Peptide Total Protein Albumin Globulin Albumin/Globulin Ratio Triglycerides 435 H Cholesterol 235 H LDL Cholesterol 123.0 VLDL Cholesterol 87.0 HDL Cholesterol 61 H Heart Disease Risk Ratio 3.85 Free T4 TSH 3rd Generation Urine Color Yellow Urine Appearance Clear Urine pH 6.0 Ur Specific [place] 1.011 Urine Protein Negative Urine Glucose (UA) Negative Urine Ketones Negative Urine Blood Negative Urine Nitrate Negative Urine Bilirubin Negative Urine Urobilinogen < 2.0 H Urine Leukocytes Negative Urine RBC 1 Urine WBC 2 Ur Squamous Epith Cells Occasional Urine Mucus Occasional Ur Culture Indicated? Not indicated 11/05/16 11/05/16 11/05/16 13:14 13:14 13:14 WBC RBC Hgb Hct MCV MCH MCHC RDW Plt Count MPV Neut % (Auto) Lymph % (Auto) [place] % (Auto) Eos % (Auto) Baso % (Auto) Neut # (Auto) Lymph # (Auto) [place] # (Auto) Eos # (Auto) Baso # (Auto) Immature Gran % Nucleated RBC % Immature Gran # Nucleated RBCs # Sodium 140 Potassium 4.1 Chloride 101 Carbon Dioxide 27 Anion Gap 16.1 H BUN 23 H Creatinine 1.20 H GFR Calculation 55 BUN/Creatinine Ratio 19.00 Glucose 143 H POC Glucose Calculated Osmolality 284.4 Calcium 9.8 Magnesium 2.5 H Total Bilirubin < 0.39 AST 26 ALT 35 Alkaline Phosphatase 113 Total Creatine Kinase 107 CK-MB (CK-2) < 1.0 Troponin I < 0.015 B-Natriuretic Peptide 120 H Total Protein 7.8 Albumin 4.2 Globulin 3.6 H Albumin/Globulin Ratio 1.1 Triglycerides 542 H Cholesterol 253 H LDL Cholesterol 126.0 VLDL Cholesterol 108.4 HDL Cholesterol 64 H Heart Disease Risk Ratio 3.95 Free T4 0.83 TSH 3rd Generation 1.850 Urine Color Urine Appearance Urine pH Ur Specific [place] Urine Protein Urine Glucose (UA) Urine Ketones Urine Blood Urine Nitrate Urine Bilirubin Urine Urobilinogen Urine Leukocytes Urine RBC Urine WBC Ur Squamous Epith Cells Urine Mucus Ur Culture Indicated? 11/05/16 13:14 WBC 8.7 RBC 4.66 Hgb 13.9 Hct 41.5 MCV 89.1 MCH 30 MCHC 33.5 RDW 13.1 Plt Count 299 MPV 10.8 Neut % (Auto) 57.3 Lymph % (Auto) 27.5 [place] % (Auto) 9.7 Eos % (Auto) 3.8 Baso % (Auto) 1.0 H Neut # (Auto) 5.0 Lymph # (Auto) 2.4 [place] # (Auto) 0.9 H Eos # (Auto) 0.3 Baso # (Auto) 0.1 Immature Gran % 0.7 Nucleated RBC % 0.0 Immature Gran # 0.06 Nucleated RBCs # 0.00 Sodium Potassium Chloride Carbon Dioxide Anion Gap BUN Creatinine GFR Calculation BUN/Creatinine Ratio Glucose POC Glucose Calculated Osmolality Calcium Magnesium Total Bilirubin AST ALT Alkaline Phosphatase Total Creatine Kinase CK-MB (CK-2) Troponin I B-Natriuretic Peptide Total Protein Albumin Globulin Albumin/Globulin Ratio Triglycerides Cholesterol LDL Cholesterol VLDL Cholesterol HDL Cholesterol Heart Disease Risk Ratio Free T4 TSH 3rd Generation Urine Color Urine Appearance Urine pH Ur Specific [place] Urine Protein Urine Glucose (UA) Urine Ketones Urine Blood Urine Nitrate Urine Bilirubin Urine Urobilinogen Urine Leukocytes Urine RBC Urine WBC Ur Squamous Epith Cells Urine Mucus Ur Culture Indicated? Preliminary micro results at discharge 11/05/16 13:40 Urine Culture - Preliminary Urine,Voided No Growth at 12 hours. DS: Provider Date of admission: 11/05/16 13:02 Primary care physician: Brain Damian MD Attending physician on admission: Isela Swan MD Consults: 11/05/16 11:32 Consult to Physician [CONS] Routine Comment: Consulting Provider: Rodger Lane When should Consulting Provider be notified: Now 11/05/16 11:33 Consult to [facility], Educator [CONS] Routine Reason for [employer]: Diabetes Education 11/05/16 14:53 Consult to Pharmacy [CONS] Routine Reason for Pharmacy Consult: Adjust Meds Renal Funct Discharging clinician: Isela Swan MD Expected date of discharge: 11/06/16
[2016-11-06 13:07] VITALS: BP 122/75
== END 2016-11-06 14:35 | disposition home or self-care (01) | DRG 313 ==
LOC: N.ICU 13:02
PROVIDERS: ADMIT Internal Medicine; ATTEND Internal Medicine